=== PATIENT | female | born 1995 | race African-American/Black ===

== ENCOUNTER 2016-08-04 11:01 | Emergency (ER) | payer BC ==
--- NOTE | 2016-08-04 11:20 | ER Document Report ---
ED Medical Screen (RME) - General Chief Complaint: Cough Stated Complaint: COUGH Notes: cough, fever, body aches, nasal drainage since states today she noticied blood streaking in mucus from coughing I have greeted and performed a rapid initial assessment of this patient. A comprehensive ED assessment and evaluation of the patient, analysis of test results and completion of the medical decision making process will be conducted by additional ED providers. TRAVEL OUTSIDE OF THE [place] IN LAST 30 DAYS: No - Related Data Allergies/Adverse Reactions: No Known Allergies Allergy (Verified 08/04/16 11:18) Past Medical History Pulmonary Medical History: Reports: Hx Asthma - no ED visits- in childhood Past Surgical History: Reports: Hx Bowel Surgery - Immunizations Immunizations up to date: Yes Hx Diphtheria, Pertussis, Tetanus Vaccination: No
[2016-08-04 11:21] VITALS: BP 132/82
--- NOTE | 2016-08-04 12:47 | ER Document Report ---
HPI - HPI Patient complains to provider of: cough, congested, had blood in mucous Onset: Other - 1 week Onset/Duration: Gradual Quality of pain: Achy Pain Level: 3 Context: 21 yo non smoker female with upper respiratory congestion, cough, and today, streaks of blood, green mucous. No fever. No vomiting or dairrhea. No chest pain or SOB. No hormones Associated Symptoms: None Exacerbated by: Denies Relieved by: Denies Similar symptoms previously: No Recently seen / treated by doctor: No - ROS ROS below otherwise negative: Yes Systems Reviewed and Negative: Yes All other systems reviewed and negative - CARDIOVASCULAR Cardiovascular: DENIES: Chest pain - REPRODUCTIVE Reproductive: DENIES: : - DERM Skin Color: Normal Past Medical History - General Information source: Patient - Social History Smoking Status: Never Smoker Chew tobacco use (# tins/day): No Frequency of alcohol use: None Drug Abuse: None Family History: Reviewed & Not Pertinent Patient has suicidal ideation: No Patient has homicidal ideation: No Pulmonary Medical History: Reports: Hx Asthma - no ED visits- in childhood Renal/ Medical History: Denies: Hx Peritoneal Dialysis Past Surgical History: Reports: Hx Bowel Surgery - Immunizations Immunizations up to date: Yes Hx Diphtheria, Pertussis, Tetanus Vaccination: No Vertical Provider Document - CONSTITUTIONAL Agree With Documented VS: Yes Exam Limitations: No Limitations General Appearance: No Apparent Distress - INFECTION CONTROL TRAVEL OUTSIDE OF THE [place] IN LAST 30 DAYS: No - HEENT HEENT: Normocephalic, Pharyngeal Erythema. negative: Tympanic Membrane Red, Tympanic Membrane Bulging - NECK Neck: Supple. negative: Lymphadenopathy-Left, Lymphadenopathy-Right - RESPIRATORY Respiratory: Breath Sounds Normal, No Respiratory Distress O2 Sat by Pulse Oximetry: 99 - CARDIOVASCULAR Cardiovascular: Regular Rate, Regular Rhythm - GI/ABDOMEN Gastrointestinal: Abdomen Soft, Abdomen Non-Tender, No Organomegaly - MUSCULOSKELETAL/EXTREMETIES Musculoskeletal/Extremeties: DAVID FROM - NEURO Level of Consciousness: Awake, Alert - DERM Integumentary: Warm, Dry, No Rash Course - Vital Signs Vital signs: Temp Pulse Resp BP Pulse Ox 97.5 F 52 L 14 132/82 H 99 08/04/16 11:30 08/04/16 11:30 08/04/16 11:30 08/04/16 11:30 08/04/16 11:30 Discharge - Discharge Clinical Impression: bronchitis, episode of hemoptysis Condition: Good Disposition: HOME, SELF-CARE Instructions: Bronchitis (COUNT INCLUDES THE [facility]), Azithromycin (COUNT INCLUDES THE [facility]) Additional Instructions: reTurn to the emergency room if worse, chest pain, shortness of breath, fever drink plenty of fluids take the antibiotics as planned. Prescriptions: Azithromycin [Zithromax] 250 mg PO DAILY #6 tablet Forms: Return to School, Return to Work Referrals: HILARIO HUGHES CNM [Primary Care Provider] - Follow up as needed
== END 2016-08-04 13:23 | disposition home or self-care (01) ==
LOC: ER 11:01
DX: J40 Bronchitis, not specified as acute or chronic (principal); R04.2 Hemoptysis
CPT/HCPCS: 99283

== ENCOUNTER 2016-09-02 06:34 | Day surgery (SDC) | payer BC ==
[2016-08-29 11:03] LABS: HEMATOCRIT 38.7 % (36.0-47.0); HEMOGLOBIN 12.7 g/dL (12.0-15.5); HGB HCT DIFFERENCE -0.6; MEAN CORPUSCULAR HEMOGLOBIN 26.6 pg (27.0-33.4); MEAN CORPUSCULAR HGB CONC 32.9 g/dL (32.0-36.0); MEAN CORPUSCULAR VOLUME 81 fl (80-97); RED BLOOD COUNT 4.78 10^6/uL (3.72-5.28); RED CELL DISTRIBUTION WIDTH 15.1 % (11.5-14.0); WHITE BLOOD COUNT 7.2 10^3/uL (4.0-10.5)
[2016-08-29 11:21] LABS: APPEARANCE,URINE SLIGHTLY-CLOUDY; BILIRUBIN,URINE NEGATIVE (NEGATIVE); GLUCOSE, URINE NEGATIVE (NEGATIVE); KETONES,URINE NEGATIVE (NEGATIVE); LEUKOCYTE ESTERASE,URINE NEGATIVE (NEGATIVE); NITRITE,URINE NEGATIVE (NEGATIVE); PROTEIN,URINE 100 mg/dL (NEGATIVE); URINE SPECIFIC GRAVITY 1.017; UROBILINOGEN,URINE NEGATIVE mg/dL (<2.0)
[2016-08-29 11:22] LABS: ANION GAP 14 (5-19); BLOOD UREA NITROGEN 6 mg/dL (7-20); CALCIUM 9.8 mg/dL (8.4-10.2); CARBON DIOXIDE 22 mmol/L (22-30); CHLORIDE 106 mmol/L (98-107); CREATININE RESULT 0.62 mg/dL (0.52-1.25); GLUCOSE 91 mg/dL (75-110); POTASSIUM 4.1 mmol/L (3.6-5.0); SODIUM 141.9 mmol/L (137-145)
[~2016-09-02 06:34] MED LIST: CEFAZOLIN 1 GM/D5W RTU 1 GM/50 ML RTUPB IV PRN; CEFAZOLIN INJ 1 GM VIAL ONE; DEXTROSE 5%-1/2 NORMAL SALINE 1,000 ML IV PRN; LIDOCAINE 0.5% INJ-PF (5 MG/ML) 50 ML SDV INJ PRN; RINGERS SOLUTION,LACTATED 1,000 ML IV PRN
[2016-09-02] MEDS ORDERED: LIDOCAINE 0.5% INJ-PF (5 MG/ML) 50 ML SDV ONE (08:16)
[2016-09-02] MEDS ORDERED: BACITRACIN INJ 50,000 UNIT VIAL ONE (08:16)
[2016-09-02] MEDS ORDERED: BUPIVACAINE HCL 0.25 % INJ/PF (2.5 MG/1 ML) 30 ML VIAL ONE (08:16)
[2016-09-02] MEDS ORDERED: FENTANYL CITRATE INJ/PF 250 MCG/5 ML AMPULE ONE (08:23)
[2016-09-02] MEDS ORDERED: DEXMEDETOMIDINE INJ 80 MCG/20 ML VIAL IV ONE (08:24)
[2016-09-02] MEDS ORDERED: MIDAZOLAM 2 MG/2 ML INJ ONE (08:24)
[2016-09-02] MEDS ORDERED: PROPOFOL INJ 200 MG/20 ML VIAL IV ONE (08:24)
[2016-09-02] MEDS ORDERED: MORPHINE SULFATE 10 MG/ML INJ IV PRN (08:47)
[2016-09-02] MEDS ORDERED: MEPERIDINE HCL/PF INJ 25 MG/1 ML DISP.SYRIN IV PRN (08:47)
[2016-09-02] MEDS ORDERED: ONDANSETRON HCL INJ/PF 4 MG/2 ML SDV IV PRN (08:47)
[2016-09-02] MEDS ORDERED: DIPHENHYDRAMINE HCL 50 MG/ML VIAL IV PRN (08:47)
[2016-09-02] MEDS ORDERED: OXYCODONE-ACETAMINOPHEN 5-325 MG TABLET PO PRN ×2 (08:47)
[2016-09-02] MEDS ORDERED: FENTANYL CITRATE INJ/PF 100 MCG/2 ML AMPUL IV PRN ×3 (08:47)
[2016-09-02] MEDS ORDERED: PROMETHAZINE HCL INJ 25 MG/1 ML VIAL IV PRN ×2 (08:47)
[2016-09-02] MEDS ORDERED: METRONIDAZOLE 500 MG/NS RTU 100 ML IV ONE (09:16)
--- NOTE | 2016-09-02 10:01 | PDOC DISCHARGE SUMMARY ---
Discharge Summary (SDC) - Discharge Final Diagnosis: #1 Recurrent pilonidal cyst infection. #2 asthma Date of Surgery: 09/02/16 Discharge Date: 09/02/16 Condition: Good Treatment or Instructions: #1 activities within moderation encouraged. #2 follow up in my office by appointment in about 1 week. Call for appointment. #3 the wounds covered clean and dry until office visit. Empty drain as needed. May change out her ABD dressing as needed #4 hold off on school/work until evaluation in office. #5 may shower in 48 hours, keep operated area as dry as possible. #6 discharge from ambulatory when ASU criteria met. #7 medications per medication reconciliation sheet. #8 Percocet and Toradol by prescription.. Also may have one Percocet up to every 2 hours when necessary for pain greater than 4 out of 10 while in the ASU Prescriptions: Ketorolac Tromethamine [Toradol 10 mg Tablet] 10 mg PO Q8HP #9 tablet Oxycodone HCl/Acetaminophen [Percocet 5-325 mg Tablet] 1 tab PO ASDIR PRN #15 tab PRN Reason: Referrals: HILARIO HUGHES CNM [Primary Care Provider] - Discharge Diet: As Tolerated Respiratory Treatments at Home: Deep Breathing/Coughing Discharge Activity: Activity As Tolerated Report the Following to Your Physician Immediately: Shortness of Breath, Unusual Bleeding
--- NOTE | 2016-09-02 10:06 | Operative Report ---
Operative Report DATE OF SURGERY: 09/02/16 PREOPERATIVE DIAGNOSIS: #1 Recurrent pilonidal cyst infection. #2 asthma POSTOPERATIVE DIAGNOSIS: #1 Recurrent pilonidal cyst infection. #2 asthma OPERATION: #1 resection of pilonidal cyst. #2 closure with advancement flap. SURGEON: RAY CARRANZA WAREHOUSE PRODUCTION WORKER: DNAYA RICHARDSON ANESTHESIA: GA TISSUE REMOVED OR ALTERED: Pilonidal cyst COMPLICATIONS: None ESTIMATED BLOOD LOSS: 20 mL. INTRAOPERATIVE FINDINGS: Of a typical chronic pilonidal 5 findings of crypts and of firm induration slightly to the left of midline. The involved skin and subcutaneous tissues were excised with preservation of healthy tissue. Specimen submitted for pathology. Nice plastic closure accomplished with elimination of the buttock cleft in the area of surgery. PROCEDURE: PROCEDURE: In this patient with recurrent pilonidal cyst infections and abscesses, who continues to be asymptomatic between attacks and seems well indicated. It continues to interfere with her activities of daily daily living. Somewhat so that she had to be off work yesterday because of the discomfort. She understands the risks to include infection, bleeding, heart, lung complications , recurrence, breakdown to open wound. After evaluation and going over the procedure with the patient and her mother, in the ambulatory area she was taken to the operating room. The patient was the positioned prone and the presacral and a generous surrounding area prepared with chlorhexidine and draped out with sterile linen. After the"universal time-out", in which it was confirmed that the patient [ did receive antibiotic], the procedure commenced. The patient was appropriately anesthetized. The lesion was sketched in marking ink, as well as the proposed incision. A dilute solution of local anesthesia was generously infiltrated in the skin and subcutaneous tissues above and around the mass. An incision was made vertically and in an oval fashion so as to include the major area of inflammation as well as the midline crypts.. This went through to the subcutaneous tissues and down to just above the presacral fascia. Dissection now proceeded in the subcutaneous tissue circumferentially around the mass and then finally posterior to it. In this way the entire mass was removed and sent for pathology. Rotation flaps were now dissected in the deep subcutaneous plane mostly on the right to the lesion, in this way the skin and subcutaneous tissues were rotated across the midline. Meticulous hemostasis was secured in the wound, using cautery . [The wound was irrigated once more with sterile saline solution]. A 15 [place] Ucco drain was now inserted through a separate superior lateral araya and its suction port placed in the depths of the wound. The wound was now closed in layers. First with 3-0 PDS deep sutures. 2-0 Prolene vertical mattress sutures which were placed at intervals of about 2 cm was to eradicate the buttock cleft and to gently isaac the skin. The edges themselves were meticulously reapproximated with a continuous suture of 4-0 Monocryl. Steri-Strips over benzoin applied and then an Acticoat dressing. A sterile dressing was applied and the procedure concluded. The cable splicer assistant provided retraction, thus facilitating the operative view. Controlled bleeding. The cable splicer assistant also followed the suturing, thus facilitating accurate suture placement. Sutured skin and applied dressings.
[2016-09-02] MEDS ORDERED: FENTANYL CITRATE INJ/PF 100 MCG/2 ML AMPUL ONE (10:23)
[2016-09-02] MEDS ORDERED: OXYCODONE-ACETAMINOPHEN 5-325 MG TABLET ONE (11:22)
[2016-09-02] MEDS ORDERED: SUCCINYLCHOLINE CHLORIDE INJ 200 MG/10 ML VIAL ONE (12:21)
[2016-09-02] MEDS ORDERED: DEXAMETHASONE SOD PHOSPHATE INJ 4 MG/1 ML VIAL ONE (12:21)
[2016-09-02] MEDS ORDERED: GLYCOPYRROLATE INJ 0.4 MG/2 ML VIAL ONE (12:21)
[2016-09-02] MEDS ORDERED: METOCLOPRAMIDE HCL INJ/PF 10 MG/2 ML SDV ONE (12:21)
[2016-09-02] MEDS ORDERED: LIDOCAINE 2% INJ-PF (20 MG/ML) 10 ML AMPUL ONE (12:21)
[2016-09-02] MEDS ORDERED: KETOROLAC TROMETHAMINE 60 MG/2 ML SDV ONE (12:21)
[2016-09-02] MEDS ORDERED: ONDANSETRON HCL INJ/PF 4 MG/2 ML SDV ONE (12:21)
[2016-09-02 12:36] VITALS: BP 103/58
== END 2016-09-02 12:15 | disposition home or self-care (01) ==
LOC: OROUT 06:34
PROVIDERS: ATTEND Surgery
PROC: 0HX8XZZ Transfer Buttock Skin, External Approach (ICD-10-PCS; 2016-09-02)
PROC: 0JB90ZZ Excision of Buttock Subcutaneous Tissue and Fascia, Open Approach (ICD-10-PCS; principal; 2016-09-02 08:30)
DX: L05.91 Pilonidal cyst without abscess (principal); J45.909 Unspecified asthma, uncomplicated; F17.210 Nicotine dependence, cigarettes, uncomplicated; E66.9 Obesity, unspecified; Z68.34 Body mass index [BMI] 34.0-34.9, adult
CPT/HCPCS: 36415; 85027; 81025; 80048; 81001; 88304 ×2; 11772; J2250; J3490 ×4; J0690; J1100; J1885; J3010 ×2; J2765; J0330; J2405; J2704; 300

== ENCOUNTER 2018-12-22 16:13 | Emergency (ER) | payer BC ==
--- NOTE | 2018-12-22 18:43 | ER Document Report ---
ED Medical Screen (RME) - General Chief Complaint: Eye Problem Stated Complaint: EYE PROBLEM Time Seen by Provider: 12/22/18 18:17 Mode of Arrival: Ambulatory Information source: Patient Notes: Patient is a 23-year-old female presented to the emergency department chief complaint of right upper eyelid swelling. Patient reports this is been going on since , states she was seen at [facility] on Thursday and started on clindamycin and told to apply warm compresses to the area. Patient reports she has been doing this and taking the medications but the swelling is getting worse. She denies any visual changes. Exam: Right upper eyelid edema. Conjunctiva unremarkable. I have greeted and performed a rapid initial assessment of this patient. A comprehensive ED assessment and evaluation of the patient, analysis of test results and completion of the medical decision making process will be conducted by additional ED providers. Dictation of this chart was performed using voice recognition software; therefore, there may be some unintended grammatical errors. TRAVEL OUTSIDE OF THE [place] IN LAST 30 DAYS: No - Related Data Allergies/Adverse Reactions: No Known Allergies Allergy (Verified 12/22/18 16:47) Past Medical History - Social History Chew tobacco use (# tins/day): No Frequency of alcohol use: Social Drug Abuse: None - Past Medical History Cardiac Medical History: Denies: Hx Coronary Artery Disease, Hx Heart Attack, Hx Hypertension Pulmonary Medical History: Reports: Hx Asthma - no ED visits- in childhood no meds Denies: Hx Bronchitis, Hx COPD, Hx Pneumonia Neurological Medical History: Denies: Hx Cerebrovascular Accident, Hx Seizures Renal/ Medical History: Denies: Hx Peritoneal Dialysis Musculoskeltal Medical History: Denies Hx Arthritis Past Surgical History: Reports: Hx Bowel Surgery - Immunizations Immunizations up to date: Yes Hx Diphtheria, Pertussis, Tetanus Vaccination: Yes Physical Exam - Vital signs Vitals: Temp Pulse Resp BP Pulse Ox 98.6 F 73 16 138/68 H 100 12/22/18 18:07 12/22/18 18:07 12/22/18 18:07 12/22/18 18:07 12/22/18 18:07 Course - Vital Signs Vital signs: Temp Pulse Resp BP Pulse Ox 98.6 F 73 16 138/68 H 100 12/22/18 18:07 12/22/18 18:07 12/22/18 18:07 12/22/18 18:07 12/22/18 18:07
--- NOTE | 2018-12-22 23:18 | ER Document Report ---
ED Eye Complaint - General Chief Complaint: Eye Problem Stated Complaint: EYE PROBLEM Time Seen by Provider: 12/22/18 18:17 Primary Care Provider: MOHAMUD FRANKLIN MD [NO LOCAL MD] - Follow up as needed Mode of Arrival: Ambulatory Notes: 23-year-old female patient emergency department chief complaint of swelling to her right eyebrow/right eyelid. Is currently on antibiotics for possible abs cess but getting worse. Was seen in another ER outside of [place] and was started on clindamycin which she has been taking every 6 hours but symptoms seem to be getting worse. No fevers. It does not hurt to move her eye. Denies any other major symptoms at this time. TRAVEL OUTSIDE OF THE [place] IN LAST 30 DAYS: No - HPI Onset: Last week Eye location: Right - Related Data Allergies/Adverse Reactions: No Known Allergies Allergy (Verified 12/22/18 16:47) Past Medical History - General Information source: Patient - Social History Smoking Status: Never Smoker Chew tobacco use (# tins/day): No Frequency of alcohol use: Social Drug Abuse: None Lives with: Family Family History: Reviewed & Not Pertinent Patient has suicidal ideation: No Patient has homicidal ideation: No - Past Medical History Cardiac Medical History: Denies: Hx Coronary Artery Disease, Hx Heart Attack, Hx Hypertension Pulmonary Medical History: Reports: Hx Asthma - no ED visits- in childhood no meds Denies: Hx Bronchitis, Hx COPD, Hx Pneumonia Neurological Medical History: Denies: Hx Cerebrovascular Accident, Hx Seizures Renal/ Medical History: Denies: Hx Peritoneal Dialysis Musculoskeletal Medical History: Denies Hx Arthritis Past Surgical History: Reports: Hx Bowel Surgery - Immunizations Immunizations up to date: Yes Hx Diphtheria, Pertussis, Tetanus Vaccination: Yes Review of Systems - Review of Systems Notes: Constitutional: denies: Chills, Diaphoresis, Fever, Malaise, Weakness EENT: No pain with eye movement. There is swelling and edema above the right eyelid and eyebrow.. Swelling under the right eye. Cardiovascular: denies: Palpitations, Heart racing, Orthopnea, Dyspnea, Chest pain Respiratory: denies: Cough, Hurts to breathe, Wheezing, Shortness of breath Gastrointestinal: denies: Abdominal pain, Diarrhea, Nausea, Vomiting, Black stools, bright red blood in stool Genitourinary: denies: Burning, Dysuria, Discharge, Frequency, Flank pain, Hematuria Musculoskeletal: denies: Joint pain, Joint swelling, Muscle pain, Muscle stiffness, back pain Hematologic/Lymphatic: denies: Anemia, Easy bleeding, Easy bruising, Blood clots Neurological/Psychological: denies: Confusion, Dementia, Depression, Loss of consciousness Skin: No lesions, no masses, no skin breakdown, no abscesses Physical Exam - Vital signs Vitals: Temp Pulse Resp BP Pulse Ox 98.6 F 73 16 138/68 H 100 12/22/18 18:07 12/22/18 18:07 12/22/18 18:07 12/22/18 18:07 12/22/18 18:07 Interpretation: Normal - General General appearance: Appears well, Alert - HEENT Head: Normocephalic, Atraumatic Eyes: Other - There is a 1 cm x 1 cm appearing abscess just located around the right eyebrow and right eyelid upper eyelid. There is some periorbital edema. The right upper eyelid is moderately edematous. It is very tender to the touch. Full range of motion of the eye without pain. Pupils: PERRL - Respiratory Respiratory status: No respiratory distress Chest status: Nontender Breath sounds: Normal Chest palpation: Normal - Cardiovascular Rhythm: Regular Heart sounds: Normal auscultation Murmur: No - Abdominal Inspection: Normal Distension: No distension Bowel sounds: Normal Tenderness: Nontender Organomegaly: No organomegaly - Back Back: Normal, Nontender - Extremities General upper extremity: Normal inspection, Nontender, Normal color, Normal ROM, Normal temperature General lower extremity: Normal inspection, Nontender, Normal color, Normal ROM, Normal temperature, Normal weight bearing. No: Jaime's sign - Neurological Neuro grossly intact: Yes Cognition: Normal Orientation: AAOx4 Roman Coma Scale Eye Opening: Spontaneous [place] Coma Scale Verbal: Oriented Roman Coma Scale Motor: Obeys Commands Roman Coma Scale Total: 15 Speech: Normal Motor strength normal: LUE, RUE, LLE, RLE Sensory: Normal - Psychological Associated symptoms: Normal affect, Normal mood - Skin Skin Temperature: Warm Skin Moisture: Dry Skin Color: Normal Course - Re-evaluation Re-evalutation: 12/23/18 01:21 Patient is already on clindamycin and I think patient needs to continue that. Patient had a sebaceous cyst which had developed an abscess. An incision was made and pus was obtained as well as some cheesy sebaceous material after the pus came out. Incision was increased slightly to about 3 mm so that it would continue to drain. Small amount of bleeding but bleeding was controlled. The wound was left open and was not packed. Patient was advised to follow-up with a passport support associate. States that she has a dermatology appointment soon. Will discharge at this time in stable condition. - Vital Signs Vital signs: Temp Pulse Resp BP Pulse Ox 98.6 F 73 16 138/68 H 100 12/22/18 18:07 12/22/18 18:07 12/22/18 18:07 12/22/18 18:07 12/22/18 18:07 Procedures - Incision and Drainage Right Time completed: :22 Type: Simple Anesthetic type: 1% Lidocaine mL's of anesthetic: 2 Blade size: 11 I&D procedure: Betadine prep applied Incision Method: Incision made by scalpel Amount/type of drainage: Approximately 2 mL of pus came out. A small amount of sebaceous material w Notes: 12/23/18 01:23 The abscess was located just at and below the right eyebrow. Edema extended to the right upper eyelid and lower infraorbital area. Discharge - Discharge Clinical Impression: Abscess, eyebrow Condition: Good Disposition: HOME, SELF-CARE Instructions: Abscess ([facility]), Post Incision and Drainage Additional Instructions: Continue with the antibiotics as prescribed. You may use pain medicine if needed. Follow-up with a passport support associate or an international marketing manager if symptoms get worse. Always, you may return if symptoms are getting worse especially if you are developing fever, worsening redness or pain with eye movement. Of note, there will be some bruising and it may look like you have a black eye. The swelling is going to end up below the right eye and this is normal. Prescriptions: Ibuprofen [Motrin 800 mg Tablet] 800 mg PO Q8H PRN 10 Days #30 tab PRN Reason: Referrals: MOHAMUD FRANKLIN MD [NO LOCAL MD] - Follow up as needed
[2018-12-23] MEDS ORDERED: LIDOCAINE 1% INJ-PF (10 MG/ML) 30 ML SDV INJ ONE (00:05)
[2018-12-23] MEDS ORDERED: OXYCODONE-ACETAMINOPHEN 5-325 MG TABLET PO ONE (01:22)
[2018-12-23] MEDS ORDERED: IBUPROFEN 600 MG TABLET PO ONE (01:22)
[2018-12-23 04:14] VITALS: BP 121/60
== END 2018-12-23 01:45 | disposition home or self-care (01) ==
LOC: ER 16:13
PROC: 0H91XZZ Drainage of Face Skin, External Approach (ICD-10-PCS; principal; 2018-12-22)
DX: L02.01 Cutaneous abscess of face (principal); R22.0 Localized swelling, mass and lump, head; J45.909 Unspecified asthma, uncomplicated
CPT/HCPCS: 99283